=== PATIENT | male | born 1975 | race Caucasian/White ===

== ENCOUNTER 2023-01-20 17:20 | Emergency (ER) | payer MEDICAID ==
[~2023-01-20] VITALS: Ht 172.7 cm; Wt 100.0 kg
[2023-01-20 17:27] VITALS: BP 140/89; PULSE 99; RESP 16; TEMP 98.8; O2SAT 95
[2023-01-20] MEDS ORDERED: CefTRIAXone 2gm/D5W 50ml BAG 50 ML IV ONE (19:50)
[2023-01-20] MEDS ORDERED: TETanus/Pertussis (Acell)/Diphther VAC/PF (Tdap-Adult) 0.5ml syringe IMVAC ONE (19:50)
[2023-01-20] MEDS ORDERED: LIDOcaine 1% W/epiNEPHrine 1:100,000 20ml vial IJ ONE (19:50)
[2023-01-20] MEDS ORDERED: normal saline 1000ML IV soln IV ONE (19:50)
[2023-01-20 20:07] LABS: BASOPHILS % (AUTO) 0.3 % (0-1); EOSINOPHILS % (AUTO) 0.2 % (0-6); HEMATOCRIT 51.6 % (42.0-52.0); LYMPHOCYTES # (AUTO) 1.9 X10'3 (1.1-4.8); LYMPHOCYTES % (AUTO) 13.9 % (21-51); MEAN CORPUSCULAR HEMOGLOBIN 30.8 PG (27.0-31.0); MEAN CORPUSCULAR HGB CONC 34.8 g/dL (33.0-36.5); MEAN CORPUSCULAR VOLUME 88.4 FL (78-98); MEAN PLATELET VOLUME 7.6 FL (7.4-10.4); MONOCYTES # (AUTO) 1.2 X10'3 (0-0.9); MONOCYTES % (AUTO) 8.9 % (2-12); NEUTROPHILS # (AUTO) 10.7 X10'3 (1.8-7.7); NEUTROPHILS % (AUTO) 76.7 % (42-75); PLATELET COUNT 260 X10'3 (140-440); RED BLOOD COUNT 5.84 X10'6 (4.70-6.10); RED CELL DISTRIBUTION WIDTH 13.2 % (11.5-14.5); WHITE BLOOD COUNT 13.9 X10'3 (4.5-11.0)
[2023-01-20] MEDS ORDERED: iohexol 300mg/ml 100ml inj. ONE (20:12)
[2023-01-20 20:19] LABS: ALANINE AMINOTRANSFERASE 23 U/L (12-78); ALBUMIN 4.2 G/DL (3.4-5.0); ALKALINE PHOSPHATASE 75 IU/L (46-116); ANION GAP 9 (8-16); ASPARTATE AMINO TRANSFERASE 16 U/L (10-37); BILIRUBIN,TOTAL 2.5 MG/DL (0.1-1.0); BLOOD UREA NITROGEN 18 MG/DL (7-18); CALCIUM 9.9 MG/DL (8.5-10.1); CHLORIDE 99 MMOL/L (99-107); GLUCOSE 137 MG/DL (70-104); POTASSIUM 3.4 MMOL/L (3.5-5.1); SODIUM 136 MMOL/L (135-145); TOTAL PROTEIN 8.6 G/DL (6.4-8.2); eCRCL 86 ML/MIN; eGFR 79 ML/MIN
[2023-01-20] MEDS ORDERED: acetaminophen 325mg tablet PO ONE (20:30)
[2023-01-20] MEDS ORDERED: ibuprofen tablet 400 MG TABLET PO ONE (20:30)
--- NOTE | 2023-01-20 20:30 | NUR ---
IV ABX ADMINISTERED BY DR. RICHAR ORELLANA.
[2023-01-20] MEDS ORDERED: rifampin 300mg capsule PO STA (21:26)
[2023-01-20] MEDS ORDERED: DOXYCYCLINE 100MG CAPSULE PO STA (21:26)
[2023-01-20] MEDS ORDERED: DOXY-411 PO (21:30)
[2023-01-20] MEDS ORDERED: RIFA300C9 PO (21:30)
== END 2023-01-20 21:52 | disposition home or self-care (01) ==
LOC: ER 17:21
DX: L03.113 Cellulitis of right upper limb (principal)
CPT/HCPCS: 10060; 36415; 73201; 80053; 83605; 84145; 85025; 87040; 90471; 90715; 96360; 99285; A6266; J3490; J7030; Q9967; 96361; A6449